=== PATIENT | female | born 1990 | race American Indian/Alaskan Native ===

== ENCOUNTER 2021-02-26 09:37 | Outpatient (CLI) | payer OTHER, SELFPAY | END 2021-02-26 09:38 | disposition home or self-care (01) | LOC: LAB 09:39 | PROVIDERS: Visit Provider Obstetrics & Gynecology | DX: Z32.00 Encounter for pregnancy test, result unknown (principal) | CPT/HCPCS: 36415; 84144; 84702 ==

== ENCOUNTER 2021-02-28 10:12 | Outpatient (CLI) | payer OTHER, SELFPAY ==
[2021-02-28 11:00] LABS: Progesterone 32.11 ng/mL
== END 2021-02-28 10:13 | disposition home or self-care (01) ==
DX: Z32.01 Encounter for pregnancy test, result positive (principal)
CPT/HCPCS: 36415; 84144; 84702